=== PATIENT | male | born 1995 | race Caucasian/White ===

== ENCOUNTER 2025-08-11 18:21 | Emergency (ER) | payer BC ==
[2025-08-11 18:58] VITALS: RESP 16; TEMP 97.5
--- NOTE | 2025-08-11 19:15 | ERPHSYRPT ---
- History of Present Illness Patient Subjective Stated Complaint: epigastric pain, RLQ pain radiating to R flank Triage Nursing Assessment: . Physician History: Abdominal pain onset of symptoms yesterday, he was concerned he may have an appendicitis or kidney stone, his has had both he has never had any previous abdominal surgeries, he has never had a previous kidney stone in the past, he denies any history of recurrent kidney disease, he denies any urinary symptoms, he does have some low back pain, has initial pain started in the epigastric area and then has migrated towards the right lower quadrant Timing/Duration: yesterday Activities at Onset: none Quality: aching Abdominal Pain Onset Location: RLQ Pain Radiation: back Allergies/Adverse Reactions: cefaclor [From Ceclor] Adverse Reaction (Mild, Verified 08/11/25 18:58) Vomiting Home Medications: No Reportable Medications [No Reported Medications] 08/11/25 [History] Hx Tetanus, Diphtheria Vaccination/Date Given: No Hx Influenza Vaccination/Date Given: No Travel Risk - International Travel Have you traveled outside of the country in past 3 weeks: No - Emerging Infectious Disease Symptoms: Abdominal Pain - Past Medical History Pertinent Past Medical History: No - Past Surgical History Past Surgical History: Yes Gastrointestinal: Hernia Repair - Social History Smoking Status: Current every day smoker Drug Use: none - Nursing Vital Signs Nursing Vital Signs: Initial Vital Signs Temperature 97.5 F 08/11/25 18:48 Pulse Rate 81 08/11/25 18:48 Respiratory Rate 16 08/11/25 18:48 Blood Pressure 153/80 08/11/25 18:48 O2 Sat by Pulse Oximetry 98 08/11/25 18:48 Pain Scale Pain Intensity 2 - Physical Exam General Appearance: no apparent distress, alert Eye Exam: PERRL/EOMI, eyes nml inspection Ears, Nose, Throat Exam: normal ENT inspection, pharynx normal, moist mucous membranes Neck Exam: normal inspection, non-tender, supple, full range of motion Respiratory Exam: normal breath sounds, lungs clear, No respiratory distress Cardiovascular Exam: regular rate/rhythm, normal heart sounds Gastrointestinal/Abdomen Exam: soft, tenderness (Right lower quadrant), No mass, No guarding, No rebound, No hepatomegaly, No organomegaly Back Exam: normal inspection, normal range of motion, No CVA tenderness, No vertebral tenderness Extremity Exam: normal inspection, normal range of motion, pelvis stable Neurologic Exam: alert, oriented x 3, cooperative, normal mood/affect, nml cerebellar function, sensation nml, No motor deficits Skin Exam: normal color, warm, dry SpO2: 98 Ordered Tests: Active Orders 24 hr Category Date Time Status IV Insertion STAT Care 08/11/25 19:05 Active ABDOMEN AND PELVIS W CONTRAST [CT] Stat Exams 08/11/25 19:36 Completed CBC W DIFF Stat Lab 08/11/25 19:26 Completed CMP Stat Lab 08/11/25 19:26 Completed LIPASE Stat Lab 08/11/25 19:26 Completed UA W/RFX UR CULTURE Stat Lab 08/11/25 19:26 Completed Lab/Rad Data: Laboratory Result Diagrams 08/11/25 19:26 08/11/25 19:26 Laboratory Results 08/11/25 08/11/25 08/11/25 Range/Units 19: 19: 19:26 WBC 7.1 (4.23-9.07) x10^3/uL RBC 4.69 (4.63-6.08) x10^6/uL Hgb 14.3 (13.7-17.5) g/dL Hct 43.5 (40.1-51.0) % MCV 92.8 H (79.0-92.2) fL MCH 30.5 (25.7-32.2) pg MCHC 32.9 (32.3-36.5) g/dL RDW 12.9 (11.6-14.4) % Plt Count 186 (163-337) x10^3/uL MPV 10.7 (9.4-12.4) fL Gran % 50.4 (34.0-67.9) % Immature Gran % (Auto) 0.1 (0.001-0.429) % Nucleat RBC Rel Count 0.0 (0.00-0.2) % Eos # (Auto) 0.47 (0.04-0.54) x10^3/uL Immature Gran # (Auto) 0.01 (0.001-0.031) x10^3u/L Absolute Lymphs (auto) 2.41 (1.32-3.57) x10^3/uL Absolute Monos (auto) 0.56 (0.30-0.82) x10^3/uL Absolute Nucleated RBC 0.00 (0.00-0.012) x10^3u/L Lymphocytes % 33.8 (21.8-53.1) % Monocytes % 7.8 (5.3-12.2) % Eosinophils % 6.6 (0.8-7.0) % Basophils % 1.3 H (0.2-1.2) % Absolute Granulocytes 3.60 (1.78-5.38) x10^3/uL Basophils # 0.09 H (0.01-0.08) x10^3/uL Sodium 141 (135-145) mmol/L Potassium 3.7 (3.5-5.1) mmol/L Chloride 106 (98-107) mmol/L Carbon Dioxide 27 (22-30) mmol/L Anion Gap 12.0 (5-15) MEQ/L BUN 6 L (9-20) mg/dL Creatinine 1.08 (0.66-1.25) mg/dL Estimated GFR 94.7 ML/MIN Glucose 105 (74-106) mg/dL Calcium 9.5 (8.4-10.2) mg/dL Total Bilirubin 0.30 (0.2-1.3) mg/dL AST 25 (17-59) U/L ALT 39 (0-50) U/L Alkaline Phosphatase 86 (38-126) U/L Serum Total Protein 7.7 (6.3-8.2) g/dL Albumin 4.4 (3.5-5.0) g/dL Lipase 37 (23-300) U/L Urine Color Yellow (Yellow) Urine Appearance Clear (Clear) Urine pH 7.0 (4.6-8.0) Ur Specific [place] 1.010 (1.005-1.030) Urine Protein Negative (Negative) Urine Glucose (UA) Negative (Negative) mg/dL Urine Ketones Negative (Negative) Urine Blood Negative (Negative) Urine Nitrite Negative (Negative) Urine Bilirubin Negative (Negative) Urine Urobilinogen 0.2 (0.2) mg/dL Ur Leukocyte Esterase Negative (Negative) U Hyaline Cast (Auto) NONE SEEN (0-2) /LPF Urine Microscopic RBC 0-2 (0-5) /HPF Urine Microscopic WBC 0-2 (0-5) /HPF Ur Epithelial Cells None Seen (None Seen) /HPF Urine Bacteria None Seen (None Seen) /HPF Urine Culture Reflexed NO (NO) - Progress Progress: re-examined Progress Note: 08/11/25 22:[address] results, Recommend outpatient follow-up and treatment - Departure Departure Disposition: Home Clinical Impression: Abdominal pain in male Condition: Stable Critical Care Time: No Referrals: ANKUR HERNANDEZ MD [Primary Care Provider, [facility]] - Follow Up with PCP/3 days Additional Instructions: Abdominal pain clear liquid diet for the next 24 hours, Tylenol or ibuprofen for pain control, follow-up to primary care in 2 to 3 days if pain persist
[2025-08-11 19:28] LABS: BASOPHIL % 1.3 % (0.2-1.2); Basophil (Absolute #) 0.09 x10^3/uL (0.01-0.08); Eosinophil (Absolute #) 0.47 x10^3/uL (0.04-0.54); Hematocrit 43.5 % (40.1-51.0); Hemoglobin 14.3 g/dL (13.7-17.5); IMMATURE GRAN # 0.01 x10^3u/L (0.001-0.031); IMMATURE GRAN % 0.1 % (0.001-0.429); Lymphocyte (Absolute #) 2.41 x10^3/uL (1.32-3.57); Mean Corpuscular Hemoglobin 30.5 pg (25.7-32.2); Mean Corpuscular Hgb Concent. 32.9 g/dL (32.3-36.5); Monocyte (Absolute #) 0.56 x10^3/uL (0.30-0.82); NUCLEATED RBC # 0.00 x10^3u/L (0.00-0.012); NUCLEATED RBC % 0.0 % (0.00-0.2); Platelet Count 186 x10^3/uL (163-337); Red Blood Count 4.69 x10^6/uL (4.63-6.08); White Blood Count 7.1 x10^3/uL (4.23-9.07)
[2025-08-11 19:40] LABS: Glucose, Urine Negative (Negative); Protein,Urine Dip Negative (Negative); RBC 0-2 /HPF (0-5); WBC 0-2 /HPF (0-5)
[2025-08-11 19:41] LABS: Calcium 9.5 mg/dL (8.4-10.2); Carbon Dioxide 27.0 mmol/L (22-30); Creatinine 1 1.08 mg/dL (0.66-1.25); EST GLOMERULAR FILTRATION RATE 94.7 ML/MIN; Glucose 105.0 mg/dL (74-106); Potassium 3.7 mmol/L (3.5-5.1); SGOT/AST 25.0 U/L (17-59); SGPT/ALT 39.0 U/L (0-50); Total Protein 7.7 g/dL (6.3-8.2)
[2025-08-11 19:53] VITALS: BP 135/84; PULSE 82
--- NOTE | 2025-08-11 22:03 | XRAY ---
CLINICAL HISTORY: RLQ abd pain COMPARISON: None. TECHNIQUE: Contrast-enhanced CT of the abdomen and pelvis was performed, with the following protocol: axial images obtained, with reconstructed coronal and sagittal images. Intravenous contrast was administered. One of the following dose reduction techniques was utilized for this exam: automated exposure control, adjustment of the mA and/or kV according to patient size, and use of iterative reconstruction. FINDINGS: Abdomen: Liver: The liver is normal in size, shape, and density. No focal lesions, cysts, or masses are identified. The hepatic vasculature and biliary ducts are unremarkable. Gallbladder and Biliary System: The gallbladder is normal in size and shape. No wall thickening, pericholecystic fluid, or gallstones are identified. The common bile duct is normal in caliber without dilation. Pancreas: The pancreatic head, body, and tail are visualized and appear normal in size and density. No pancreatic masses or calcifications are noted. The pancreatic duct is not dilated. Spleen: The spleen is normal in size, shape, and density. No splenic lesions or masses are identified. Appendix: The appendix is normal in size with subtle periappendiceal fat stranding and without an appendicolith. No evidence of appendiceal abscess or perforation. Kidneys and Adrenal Glands: Both kidneys are normal in size, shape, and position. Cortical thickness is within normal limits. Normal contrast uptake, secretion, and excretion of both kidneys showing free flow of contrast down to the urinary bladder with no stricture or filling defects. No renal calculi or hydronephrosis. Adrenal glands are unremarkable with no evidence of masses or hyperplasia. Pelvis: Urinary Bladder: The urinary bladder is normal in contour and wall thickness. No intraluminal lesions are identified. Prostate: The prostate is normal in size and contour. No focal lesions or masses are identified. Seminal Vesicles: The seminal vesicles are normal in size and appearance. No abnormalities are noted. Rectum and Sigmoid Colon: There is normal wall thickness and no evidence of mass. There are a few small uncomplicated diverticulae. Peritoneal and Retroperitoneal Structures: No free fluid or abnormal fluid collections are identified within the abdomen or pelvis. No lymphadenopathy is noted. Bowel: The visualized bowel loops are normal in caliber and appearance. No evidence of bowel obstruction or wall thickening is seen. Bones and Soft Tissues: The pelvic bones and soft tissues are unremarkable. No fractures or abnormal masses are identified. IMPRESSION: 1. There is no evidence of acute intra-abdominal pathology. 2. Normal-appearing appendix with subtle periappendiceal stranding; requires clinical correlation and, if indicated, follow-up examination to rule out the possibility of early or developing acute appendicitis. 3. No definite evidence of nephroureterolithiasis. Electronically Signed by: Clive To MD. (08/11/2025 22:01:24 EDT)
[2025-08-11 22:16] VITALS: O2SAT 98
== END 2025-08-11 22:22 | disposition home or self-care (01) ==
LOC: ED 18:21
DX: R10.13 Epigastric pain (principal); R10.31 Right lower quadrant pain; Z72.0 Tobacco use